=== PATIENT | female | born 1945 | race Asian ===

== ENCOUNTER 2017-02-22 22:34 | Emergency (ER) | payer MEDICARE, OTHER ==
[~2017-02-22] VITALS: Ht 149.9 cm; Wt 57.0 kg
[~2017-02-22 22:34] MED LIST: CALC-179 PO; GLUC1000 PO; LISI2.5T55 PO; SIMV1TAB76 PO
[2017-02-22 22:35] VITALS: BP 172/77; PULSE 72; RESP 24; TEMP 99.3; O2SAT 99
== END 2017-02-22 22:54 | disposition left against medical advice (07) ==
LOC: NED 22:34
DX: R11.2 Nausea with vomiting, unspecified (principal); Z53.21 Procedure and treatment not carried out due to patient leaving prior to being seen by health care provider
CPT/HCPCS: 99281